=== PATIENT | male | born 1960 | race Caucasian/White ===

== ENCOUNTER → 2017-09-19 | Outpatient (CLI) | payer OTHER ==
--- NOTE | 2017-09-19 09:47 | DIAGNOSTIC IMAGING REPORT ---
R KNEE 3 VIEWS CLINICAL HISTORY: 57 years-old Male presenting with BILATERAL KNEE PAIN. TECHNIQUE: Bilateral frontal view of the knees in standing position as well as bilateral sunrise, lateral, and tunnel views of the knees were obtained. COMPARISON: 2009. FINDINGS: Right knee: Medial compartment osteophytosis is stable to slightly progressed from prior exam. Minimal medial joint space loss may be present as well as subchondral sclerosis in the medial tibial plateau. Osteophytosis at the patellofemoral compartment also noted. Small knee joint effusion. No acute fracture or malalignment. Left knee: Mild medial joint space loss greater than in the right knee with subchondral sclerosis in the medial femoral condyle and medial tibial plateau as well as osteophytosis noted. Osteophytosis also noted at the patellofemoral compartment. Small knee joint effusion. No acute fracture. Several loose bodies may be present posteriorly in the left knee joint. IMPRESSION: 1. Degenerative changes in the medial and patellofemoral compartments of the right knee. 2. More significant degenerative change in the left knee most pronounced in the medial compartment. Additional degenerative changes in the patellofemoral compartment of the left knee. 3. Small bilateral joint effusions. 4. Loose bodies suspected in the left knee joint. Electronically signed by: Khanh Smith M.D. 09/19/2017 9:45 AM Dictated Date/Time: 09/19/2017 9:42 AM
== END | disposition home or self-care (01) ==
LOC: C.RDSM 17:28
PROVIDERS: ATTEND Physician Assistant
DX: M25.561 Pain in right knee (principal); M25.562 Pain in left knee; M17.0 Bilateral primary osteoarthritis of knee

== ENCOUNTER 2019-12-20 08:50 | Observation (INO) ==
--- NOTE | 2019-12-12 10:50 | Anesthesiology Consultation ---
Date of Service December 12, 2019 Assessment & Plan (1) Encounter for pre-operative examination: COVID Status: As of nurse assessment 12/11, patient denies travel outside of [facility], known exposure/sick contacts, or symptoms. Patient was tested for covid19 on 12/09 as pre-op for surgery. Results pending. Chart Review Chart Review: Acceptable Risk for Surgery (pending covid19 results from 12/09) and Patient NOT seen in Pre Admission Testing History Surgery Operation Date: 12/20/19 10:40 Proposed Procedures p Left Total Knee Arthroplasty - Harshad Singh MD Height/Weight Height: 6 ft Weight: 95.254 kg Allergies Allergy/AdvReac Type Severity Reaction Status Date / Time No Known Allergies Allergy Verified 12/12/19 08:57 Medications Home Medications Medication Instructions Recorded Confirmed Last Taken cannabidiol 100 mg PO USEASDIRECTD PRN 09/26/19 12/12/19 Unknown Past Medical History Medical History Lyme disease Has had PICC lines placed for treatment in the past. Medical cannabis use Osteoarthritis Rheumatoid arthritis Past Family History Family History Father Family history of oral cancer at age 62 Other Cancer No family history of adverse response to anesthesia Past Surgical History Surgical History H/O arthroscopy of right knee H/O repair of rotator cuff RIGHT History of carpal tunnel surgery of right wrist History of left inguinal hernia repair History of right inguinal hernia repair Status post trigger finger release right hand [place] teeth removed Social History Smoking Status: Former smoker tobacco type: cigarettes Do You Dip or Chew Tobacco: No Smoking End Date: quit 1 yr ago Hx Alcohol Use: Yes Alcohol type: beer alcohol intake frequency: a few times a month Hx Substance Use: Yes (medical marijuana) substance use type: marijuana Testing Laboratory Results 11/28/19 WBC: 7.01 H/H: 16.2/46.9 PLATELETS: 277 SODIUM: 140 POTASSIUM: 3.8 CHLORIDE: 109 CO2: 27 BUN: 17 CREATININE: 1.00 GLUCOSE: 106 PT: 10.0 PTT: 30.2 INR: 0.9 TYPE AND SCREEN: O+, ab - Electrocardiogram Date: 11/28/19 Findings: + NSR @ (71bpm) Chest X-Ray Date: 11/28/19 Findings: + NAD Subtle chronic interstitial changes.
--- NOTE | 2019-12-13 12:55 | History and Physical Report ---
DATE OF ADMISSION: 12/20/2019 CHIEF COMPLAINT: Bilateral knee pain and discomfort, left side greater than the right. HISTORY OF PRESENT ILLNESS: The patient is a 59-year-old fairly active gentleman with underlying diagnosis of rheumatoid arthritis and a previous history of Lyme disease who presents for treatment of his both knees, most specifically his left knee. He has got a long history of knee pain and discomfort, followed by Dr. Malia brown in [place]. He has been through extensive conservative treatment including multiple anti-inflammatory medicines, steroid shots and viscosupplementation, which have become less successful over time. He has been on methotrexate in the past, but they took him off as it did not seem to help. He has got global pain in both knees. The left side is a bit worse than the right. The more he walks, the more they hurt. He does get some swelling. Denies any groin pain. His walking tolerance is a couple blocks. He has increased pain going up and down steps. Of note, the patient does have a history of Lyme disease, but it has been treated in the past with oral as well as IV antibiotics. This has been quiescent for years. He does have a history of narcotic use in the past as well and concerned about narcotic use after surgery. PAST MEDICAL HISTORY: Significant for: 1. Narcotic use. 2. Rheumatoid arthritis. PAST SURGICAL HISTORY: Includes: 1. Rotator cuff repair. 2. Right knee scope x2. 3. Herniorrhaphy. 4. Hand surgery. ALLERGIES: None. CURRENT MEDICATIONS: Include medical marijuana. SOCIAL HISTORY: Significant for a 59-year-old male. He does not smoke. He is . FAMILY HISTORY: Noncontributory. REVIEW OF SYSTEMS: Significant for narcotic use in the past along with a history of Lyme disease. He also has rheumatoid disease. Denies any chest pain or shortness of breath. No history of DVT or PE. No known bleeding problems. PHYSICAL EXAMINATION GENERAL: Shows a pleasant, middle-aged male, looks to be in pretty good health. HEENT: Benign. NECK: Supple, no lymphadenopathy. LUNGS: Clear to auscultation. HEART: Regular rate and rhythm. ABDOMEN: Soft, nontender, nondistended. EXTREMITIES: Grossly neurovascularly intact except as follows: Examination of both knees reveals patient walks independently. Examination of the left knee reveals a varus-aligned knee with a varus thrust with weightbearing. He has got a moderate-sized knee effusion. Range of motion is about 5-10 degrees short of full extension to about 90 degrees of flexion. His knee is pretty stiff in flexion. No pain with hip motion. Examination of the right knee reveals varus deformity. A small thrust with weightbearing. Range of motion is 5-100. No pain with hip motion. He is neurologically intact. X-RAYS: X-rays of both knees were reviewed. It shows advanced bilateral knee DJD. The left side is a bit worse than the right. He has got complete loss of his medial joint space. He has got osteophytes off the medial femoral condyle and medial tibial plateau. ASSESSMENT: A 59-year-old male with the underlying diagnosis of rheumatoid arthritis and advanced bilateral knee degenerative joint disease, left side worse than the right. He has failed conservative treatment. He would like to proceed with knee replacement surgery. He does have a history of narcotic use in the past and concerned about that and would like to be careful with his postoperative pain control. We will use multimodality treatment. The risks and benefits of left total knee replacement were explained to the patient including but not limited to DVT, PE, , infection, neurological injury, vascular injury, bleeding problem, pain, limited range of motion, stiffness, failure to relieve his symptoms, incomplete relief of symptoms, need for further surgery in the future, fracture, leg length inequality, nerve palsy, etc. The patient understands and desires to proceed. Informed consent was obtained. This patient was scheduled for surgery in the past but rescheduled due to the COVID epidemic. He would now like to proceed with his surgery. He has been tested for COVID, and his results are currently pending.
[~2019-12-20 08:50] MED LIST: ACETAMINOPHEN 500 MG TAB PO SCH; BUPIVACAINE 0.25% 30 ML VIAL ONE; BUPIVACAINE 0.5 % 5 MG/1 ML PF 10ML VIAL ONE; BUPIVACAINE LIPOSOME/PF 266 MG, BUPIVACAINE/EPINEPHRINE 50 ML, SODIUM CHLORIDE 0.9% 30 ... INFIL SCH; CEFAZOLIN 2000MG 2,000 MG/15 ML SYR IV SCH; FAMOTIDINE 20 MG TAB PO SCH; GABAPENTIN 600 MG DOSE PO SCH; LR 500ML BOLUS, THEN 15ML/HR IV SCH; LR 60ML/HR IV SCH; METOCLOPRAMIDE HCL 10 MG TABLET PO SCH; SCOPOLAMINE 1.5 MG TDSY TD SCH; TRANEXAMIC ACID 1,000 MG **IV Intra-op IV SCH
--- NOTE | 2019-12-20 08:53 | History & Physical Bridge Note ---
Date of Service December 20, 2019 History & Physical Bridge Note I have examined the patient, reviewed the History & Physical and in the interval since the performance of the History & Physical I have noted the following changes of clinical significance: no changes noted
[2019-12-20] MEDS ORDERED: fentaNYL citrate 100 MCG/2 ML VIAL ONE (09:37)
[2019-12-20] MEDS ORDERED: MIDAZOLAM HCL 1 MG/ML 2ML VIAL ONE (09:37)
[2019-12-20] MEDS ORDERED: ATROPINE SULFATE 0.1 MG/ML 10ML SYR IV PRN (10:01)
[2019-12-20] MEDS ORDERED: ePHEDrine sulfate 50 MG/ML AMP IV PRN (10:01)
[2019-12-20] MEDS ORDERED: SODIUM CHLORIDE 0.9% PF 50 ML VIAL ONE (10:42)
[2019-12-20] MEDS ORDERED: BUPIVACAINE/EPINEPHRINE 0.25% 1:200,000 30 ML VIAL ONE (10:42)
[2019-12-20] MEDS ORDERED: BACITRACIN INJ 50,000 UNIT VIAL ONE (10:43)
[2019-12-20] MEDS ORDERED: BUPIVACAINE LIPOSOME 1.3% 266 MG/20 ML VIAL ONE (10:43)
[2019-12-20] MEDS ORDERED: PROPOFOL IV EMULSION 10 MG/ML 20 ML VIAL IV ONE ×3 (11:01→12:19)
[2019-12-20] MEDS ORDERED: ePHEDrine sulfate 50 MG/ML AMP ONE (11:17)
--- NOTE | 2019-12-20 12:43 | Post Operative Brief Note ---
PG Immediate Post Op with CF Date of Surgery December 20, 2019 Pre & Post Diagnosis Operation Date: 12/20/19 10:40 Pre-Op Diagnosis: Left Knee Osteoarthritis Post-Op Diagnosis: Left Knee Osteoarthritis I identified the patient and participated in the time-out.: Yes Procedure Operation Date: 12/20/19 10:40 Actual Procedures p Left Total Knee Arthroplasty(Left) - Harshad Singh MD Surgeon Harshad Singh MD Fireman Veronica, PAC Estimated Blood Loss 50 Findings Consistent with Post-Op Diagnosis Fluids 1200 cc Specimens Specimen Description: A. Left Knee Bone and Tissue Drains Mora Catheter (A. Muck inserted catheter without difficulty and return of yellow urine ) Anesthesia Type Spinal MAC Complications none Disposition Accompanied Patient To Recovery: Yes Disposition: Recovery Room
--- NOTE | 2019-12-20 12:54 | Operative Report ---
Post Operative Report Pre & Post Diagnosis Operation Date: 12/20/19 10:40 Pre-Op Diagnosis: Left Knee Osteoarthritis Post-Op Diagnosis: Left Knee Osteoarthritis I identified the patient and participated in the time-out.: Yes Procedure Operation Date: 12/20/19 10:40 Actual Procedures p Left Total Knee Arthroplasty(Left) - Harshad Singh MD Surgeon Harshad Singh MD Cable Television Access Coordinator Veronica, PAC Estimated Blood Loss 50 Findings Consistent with Post-Op Diagnosis Operative findings revealed advanced left knee DJD with extensive diffuse grade 4 [id number] disease of the medial compartment. He had spotty grade 4 changes of the patellofemoral and lateral compartments. He had a moderate-sized joint effusion. He had a fairly stiff knee with about a 5 degree flexion contracture only about 90 degrees of flexion preoperatively. Fluids 1200 cc. Specimens Left knee sent for pathology. Drains None. Anesthesia Type Spinal MAC Complications none Disposition Accompanied Patient To Recovery: Yes Disposition: Recovery Room Indications Patient is a 59-year-old fairly active gentleman is had a long history of knee problems. He has been treated for rheumatoid arthritis over in [facility]. He is been through extensive conservative treatment which is become less successful over time. X-ray showed advanced medial compartment DJD. Patient elected proceed with surgical treatment. Of note, the patient had a fairly stiff knee preoperatively with about a 5 to 10 degree flexion contracture and could only bend about 90 degrees. Description of Procedure Operative implants consisted of: 1. Biomet Vanguard size 70 left posterior by femoral component. 2. Biomet size 79 tibial tray. 3. 10 mm posterior box polyethylene insert. 4. 34 x 8 and half all poly-patella. Patient was taken to the operating room identified and placed on the operating table supine position protectors were properly padded. IV antibiotics arrived by anesthesia team. A Mora catheter was placed in sterile fashion to the left thigh tip was then placed. Left lower extremity was then prepped and draped in usual sterile fashion. The left leg was elevated exsanguinated with use of an Esmarch and turns placed at 300 mmHg. An anterior approach to the left knee was then performed through a longitudinal incision centered over the patella. Sharp dissection was gone through subcutaneous this down to the extensor mechanism. A medial parapatellar arthrotomy incision was made. Some subperiosteal dissection was carried out medially. The fat pad was resected from each patella tendon. Lateral patellofemoral ligament was released. Patella was subluxated laterally and the knee was flexed. The osteophytes were taken off the distal femur. The ACL and PCL were then released from the distal femur and the tibia was subluxated anteriorly. The external tibial alignment jig was then placed in the interface the tibia and adjusted 14 mm medially. Proximal tibial cut was made to move out a millimeter bone at most from the most efficient aspect of the posterior medial tibial plateau. Some osteophytes were taken off medial and posterior medially. The tibia was sized to a size 79. Attention drawn the femur. The distal femur was entered the sharp drill. The intramedullary canal was suction. A left 6 degree valgus cutting guide was placed. Distal femoral cutting block was pinned in place. Distal femoral cut was made to take an additional 3 mm bone off distal femur. The femur was then sized to a size 70. Sized exactly to a 70. The AP cutting block was pinned parallel to the epicondylar axis which was 5 degrees of external rotation. The anterior cut, anterior chamfer, posterior cut, posterior chamfer cuts were made. Box cutting guide was placed in just slight lateral box cut was made. The knee was flexed. The remnants of the medial lateral menisci were excised. The osteophytes were taken off the posterior aspect of the femur. A trial femoral component was placed. The tibial tray was pinned in maximum external rotation and the drill and stem punch were used to create defect in proximal tip for the tibial tray. Knee was then trialed and the 10 mm insert fit most appropriately. Attention drawn to the patella. The patella was cleaned of all soft tissues. Patella thickness measured 26 mm in thickness was cut down to 14. Was sized to a size 34 patella. Locals were drilled for 34 patella. The lateral osteophyte was removed. Patella button was placed. Knee was taken through range of motion and patella tracked nicely with no thumbs test. Attention then drawn toward placing the permanent components. All trial components were removed. A bone plug was placed in the disc femur limit blood loss. The knee was irrigated with copious amounts of pulsatile lavage solution. A double batch of Palacos G cement was mixed. A Biomet Vanguard size 70 left posterior by femoral component, a size 79 tibial tray, 10 mm posterior box polyethylene insert, and a 34 x 8 and half all poly-patella were then cemented in place. Knee was brought out into full extension until cement hardened. Final cement check was then performed. The pericapsular tissues were injected with total 100 cc of combination of 20 cc of Exparel, 30 cc normal saline, 50 cc of quarter percent Marcaine with epinephrine. Patient did receive 1 g of tranexamic acid per the tourniquet was then let down for final tourniquet time of 59 minutes. Hemostasis assured use electrocautery. The wounds once again irrigated. Extensor mechanism closed with combination 1 PDS suture #1 Vicryl suture in [id number] fashion. Extensor mechanism brennon cked found to be intact the subcutaneous tissue then closed with 2 Dexon suture in a buried interrupted fashion skin was closed skin boston. Leg was then cleaned dried a sterile dressing composed Xeroform, 4 x 4's, sterile cast padding, Karthikeyan bandage were applied. Patient transferred to the recovery room in stable condition. Patient tolerated the procedure well no complications. I attest to the content of the Intraoperative Record and any orders documented therein. Any exceptions are noted below.
--- NOTE | 2019-12-20 13:09 | XRay Report ---
XR knee LT 1 or 2V routine CLINICAL HISTORY: Surgical Post Op COMPARISON: 05/27/2014 DISCUSSION: Anatomic alignment posttotal left knee arthroplasty. Good contact between prosthetic and underlying bone. Expected soft tissue postoperative change. IMPRESSION: Anatomic alignment posttotal left knee arthroplasty. ACT 112: Negative or not required by law. The above report was generated using voice recognition software. It may contain grammatical, syntax or spelling errors. Electronically signed by: Kp Haynes M.D. 12/20/2019 1:08 PM
--- NOTE | 2019-12-20 13:13 | Anesthesiology Progress Note ---
Date of Service December 20, 2019 Anesthesia Post Procedure Vital Signs Vital Signs: Temp Pulse Pulse Resp BP Pulse Ox 12/20/19 13:10 64 20 113/72 93 12/20/19 13:00 69 18 96/66 L 96 12/20/19 12:50 69 16 98/59 L 97 12/20/19 12:44 36.4 C L 72 22 101/66 96 12/20/19 09:22 36.9 C 74 18 154/94 H 96 Transfer of Care Handoff Completed per policy Notes Mental Status: alert / awake / arousable and participated in evaluation Nausea / Vomiting: adequately controlled Pain: adequately controlled Airway Patency, RR, SpO2: stable & adequate BP & HR: stable & adequate Hydration State: stable & adequate Neuraxial Anesthesia: was administered and sensory block is resolving Anesthetic Complications: no major complications apparent and Pt Satisfied with anesthetic care
[2019-12-20] MEDS ORDERED: NALOXONE HCL 0.4 MG/1 ML VIAL/CARP IV PRN (14:24)
[2019-12-20] MEDS ORDERED: bisacodyL 10 MG SUPP PR PRN (14:24)
[2019-12-20] MEDS ORDERED: ALUMINUM/MAGNESIUM SUSP 30 ML UDC PO PRN (14:24)
[2019-12-20] MEDS ORDERED: TAMSULOSIN HCL 0.4 MG CAP PO PRN (14:24)
[2019-12-20] MEDS ORDERED: MAGNESIUM HYDROXIDE SUSP 30 ML UDC PO PRN (14:24)
[2019-12-20] MEDS ORDERED: METOCLOPRAMIDE HCL INJ 5 MG/ML 2 ML VIAL IV PRN (14:24)
[2019-12-20] MEDS ORDERED: MEDICAL MARIJUANA PO PRN (14:45)
[2019-12-20] MEDS: ACETAMINOPHEN 500 MG TAB PO SCH ×2 (15:25→22:14)
[2019-12-20] MEDS: SODIUM CHLORIDE 0.9% 1000ML 1,000 ML IV SCH ×2 (15:25→23:56)
[2019-12-20] MEDS: KETOROLAC 30 MG/ML VIAL IV SCH ×2 (15:27→21:08)
[2019-12-20] MEDS: CHECK SCOPOLAMINE PATCH PLACEMENT SCH (15:32)
[2019-12-20] MEDS: TRAMADOL HCL 50 MG TABLET PO PRN ×2 (16:26→23:50)
[2019-12-20] MEDS: HYDROmorphone INJ 0.5 MG/0.5 ML SYR IV PRN (17:35)
[2019-12-20] MEDS: ASCORBIC ACID 500 MG TAB PO SCH (17:40)
[2019-12-20] MEDS: FERROUS GLUCONATE 324 MG TAB PO SCH (17:41)
--- NOTE | 2019-12-20 18:04 | Progress Notes ---
DATE: 12/20/2019 SUBJECTIVE: A 59-year-old gentleman postop from a left knee replacement. He is doing pretty well. Just starting to get the function and sensation back in his leg. No chest pain or shortness of breath. Not feeling dizzy or lightheaded. OBJECTIVE: VITAL SIGNS: Temperature 36.4. Vital signs stable. GENERAL: Shows a pleasant middle-aged male. He is sitting up in bed, looks quite comfortable. LUNGS: Clear to auscultation. HEART: Regular rate and rhythm. ABDOMEN: Soft, nontender, nondistended. EXTREMITIES: Grossly neurovascularly intact except as follows. Examination of the left lower extremity reveals the dressing to be clean, dry and intact. Leg is well aligned. He is just slightly be able to flex and extend his toes. He has got brisk refill. Good distal pulse. X-RAYS: X-rays of the left knee from recovery room were reviewed. It shows a cemented posterior stabilized total knee arthroplasty. Components looked to be in good position. No signs of problems. ASSESSMENT: A 59-year-old gentleman postop from a left knee replacement, doing well. His pain is controlled. He is just getting the nerve function back in his leg. PLAN: 1. DVT prophylaxis including thigh-high TEDs, SCDs, and aspirin twice a day. 2. PT/OT. Weight bear as tolerated. Left total knee protocol. 3. Pain control, doing pretty well with current pain regimen. We will have to adjust his medicines as his spinal wears off. 4. IV antibiotics x24 hours. 5. Disposition: Plan to discharge to home with some home health once adequately recovered and medically stable.
[2019-12-20] MEDS: CEFAZOLIN 2000MG 2,000 MG/15 ML SYR IV SCH (18:51)
[2019-12-20] MEDS ORDERED: TRANEXAMIC ACID / 0.7% NACL 1,000 MG/100 ML BAG IV SCH (19:00)
[2019-12-20] MEDS: DOCUSATE SODIUM 100 MG CAP PO SCH (21:07)
[2019-12-20] MEDS: ASPIRIN 81 MG ECTAB PO SCH (21:08)
[2019-12-20] MEDS: SENNA 8.6 MG TAB PO SCH (21:08)
[2019-12-21] MEDS: CHECK SCOPOLAMINE PATCH PLACEMENT SCH ×4 (00:22→23:48)
[2019-12-21] MEDS: CEFAZOLIN 2000MG 2,000 MG/15 ML SYR IV SCH (02:05)
[2019-12-21] MEDS: KETOROLAC 30 MG/ML VIAL IV SCH ×5 (03:28→21:56)
[2019-12-21] MEDS: ACETAMINOPHEN 500 MG TAB PO SCH ×3 (05:58→22:11)
[2019-12-21 07:03] LABS: Hematocrit (blood only) 39.5 % (42-52); Hemoglobin 13.3 g/dL (14.0-18.0); Mean Corpuscular Hemoglobin 30.2 pg (25-34); Mean Corpuscular Hgb Conc 33.7 g/dL (32-36); Mean Corpuscular Volume 89.6 fL (80-100); Mean Platelet Volume 8.8 fL (7.4-10.4); Platelet Count 200 K/uL (130-400); RDW Standard Deviation 46.4 fL (36.4-46.3); Red Blood Count 4.41 M/uL (4.7-6.1)
[2019-12-21 07:33] LABS: BUN Creatinine Ratio 13.6 (10-20); Calcium 8.5 mg/dl (8.5-10.1); Creatinine Clr Calc Pharmacy 104.6 ml/min; Est GFR (African American) 105.8; Est GFR (Non-African American) 91.3; Potassium 4.1 mmol/L (3.5-5.1)
[2019-12-21] MEDS: TRAMADOL HCL 50 MG TABLET PO PRN ×2 (07:41→20:05)
--- NOTE | 2019-12-21 09:04 | Progress Notes ---
DATE: 12/21/2019 SUBJECTIVE: A 59-year-old gentleman postop day 1 from a left knee replacement. He is doing pretty well. Pain seems to be controlled. Had a pretty good night. No chest pain or shortness of breath. Not feeling dizzy or lightheaded. OBJECTIVE: VITAL SIGNS: Temperature is 36.5. Vital signs stable. GENERAL: Shows a pleasant, middle-aged male. He is sitting up in bed, looks awake, alert, and comfortable. EXTREMITIES: Examination of the left leg reveals the dressing to be clean, dry, and intact. He can dorsiflex and plantarflex his foot appropriately. He is neurologically intact. LABORATORY DATA: Hemoglobin 13.3. Hematocrit 39.5. Electrolytes are pending. ASSESSMENT: A 59-year-old gentleman postop day 1 from left knee replacement, doing pretty well. Pain seems to be pretty well controlled. He is neurologically intact. PLAN: 1. DVT prophylaxis including thigh-high TEDs, SCDs, and aspirin twice a day. 2. PT/OT. Weight bear as tolerated. Left total knee protocol. 3. Pain control, doing pretty well with current pain regimen. 4. Disposition: He is planning to be discharged to home with some home health once medically stable and adequately recovered.
[2019-12-21] MEDS: ASCORBIC ACID 500 MG TAB PO SCH ×2 (09:05→17:53)
[2019-12-21] MEDS: MULTIVITAMIN TAB PO SCH (09:06)
[2019-12-21] MEDS: ASPIRIN 81 MG ECTAB PO SCH ×2 (09:06→20:57)
[2019-12-21] MEDS: FERROUS GLUCONATE 324 MG TAB PO SCH ×2 (09:06→17:53)
[2019-12-21] MEDS: DOCUSATE SODIUM 100 MG CAP PO SCH ×2 (09:06→20:57)
[2019-12-21] MEDS: HYDROmorphone INJ 0.5 MG/0.5 ML SYR IV PRN (12:36)
[2019-12-21] MEDS: ONDANSETRON INJ 2 MG/ML 2 ML VIAL IV PRN ×2 (12:36→20:07)
[2019-12-21] MEDS: SENNA 8.6 MG TAB PO SCH (20:57)
[2019-12-22] MEDS: KETOROLAC 30 MG/ML VIAL IV SCH ×2 (04:12→09:51)
[2019-12-22] MEDS: ACETAMINOPHEN 500 MG TAB PO SCH (05:41)
[2019-12-22] MEDS: CHECK SCOPOLAMINE PATCH PLACEMENT SCH (07:49)
[2019-12-22] MEDS: ASPIRIN 81 MG ECTAB PO SCH (07:50)
[2019-12-22] MEDS: FERROUS GLUCONATE 324 MG TAB PO SCH (07:50)
[2019-12-22] MEDS: ASCORBIC ACID 500 MG TAB PO SCH (07:50)
[2019-12-22] MEDS: MULTIVITAMIN TAB PO SCH (07:51)
[2019-12-22] MEDS: DOCUSATE SODIUM 100 MG CAP PO SCH (07:51)
[2019-12-22] MEDS: TRAMADOL HCL 50 MG TABLET PO PRN (08:38)
--- NOTE | 2019-12-22 08:38 | Progress Notes ---
DATE: 12/22/2019 SUBJECTIVE: A 59-year-old gentleman postop day 2 from a left knee replacement. He is doing pretty well. Some pain, but manageable. No chest pain or shortness of breath. Not feeling dizzy or lightheaded. OBJECTIVE: VITAL SIGNS: Temperature 36.8. Vital signs stable. GENERAL: Shows a pleasant, middle-aged male. He is lying in bed, looks reasonably comfortable. EXTREMITIES: Examination of the left leg reveals the leg to be well aligned. Dressing is clean, dry, and intact. He can dorsiflex and plantarflex his foot appropriately. He is neurologically intact. ASSESSMENT: A 59-year-old gentleman postop day 2 from left knee replacement, doing pretty well. Pain is reasonably well controlled. He is neurologically intact. PLAN: 1. DVT prophylaxis including thigh-high TEDs, SCDs, and aspirin twice a day. 2. PT/OT weightbear as tolerated. Left total knee protocol. 3. Pain control, doing pretty well with current pain regimen. 4. Disposition: Plan to discharge to home with some home health later today.
[2019-12-22] MEDS: ONDANSETRON INJ 2 MG/ML 2 ML VIAL IV PRN (09:52)
--- NOTE | 2019-12-24 15:48 | Discharge Summary ---
Date of Service December 24, 2019 Admission HPI Per Admitting Provider Documented in the admission H&P Documented in the admission H&P Admission Exam (Per Admitting) Constitutional Documented in the admission H&P Discharge Data Consultations 12/20/19 14:24 Consult Case Management - Discharge Planning Routine Procedures Performed Operation Date: 12/20/19 10:40 Actual Procedures p Left Total Knee Arthroplasty(Left) - Harshad Singh MD Hospital Course (1) Status post total left knee replacement: 59-year-old male admitted on 12 20 2019 and underwent total knee arthroplasty. He tolerated the procedure well. There are no complications. He is transferred to the PACU postoperatively to the orthopedic floor for further care. He was given Ancef for antibiotic prophylaxis. He was given SHAWN stockings, SCDs, and aspirin for DVT prophylaxis. Hemoglobin, hematocrit, and vital signs were monitored during his hospital stay remained stable. I requiring blood transfusions. There were no complications. Postoperative day 2 he is tolerating a regular diet, his pain was controlled with oral pain medicine, and he is participating in physical therapy. Postop day 2 was discharged home set up with home health services. He was given printed discharge instructions as well as new prescription structuring Tylenol, aspirin, and tramadol. Continue his home medicines. Continue physical therapy. He is weightbearing as tolerated. Continue SHAWN stockings. Follow-up in approximately 2 weeks postoperatively or sooner if there are any problems or concerns. Coding Level of Care Code None Diagnoses Status post total left knee replacement Z96.652
== END 2019-12-22 11:16 | disposition home health service (06) ==
LOC: ASU 08:50 → 3E 08:50